=== PATIENT | female | born 1975 | race Caucasian/White ===

== ENCOUNTER → 2021-01-11 13:27 | Outpatient (CLI) | payer OTHER, SELFPAY ==
--- NOTE | ~2021-01-11 | CT_ITS ---
EXAMINATION: CT abdomen pelvis w con INDICATION: Abnormal findings on imaging of the liver TECHNIQUE: Computed tomographic images of the abdomen and pelvis were obtained after the administrati on of 100 cc of Omnipaque 350 intravenous contrast. The dose-length product (DLP) was 508.92 mGy-cm. Automated exposure control and iterative reconstruction technique were employed. COMPARISON: None available FINDINGS: Minimal dependent atelectasis is present in the lung bases. The heart size is normal. There is a 2 cm cyst of the liver at the gallbladder fossa. Multiple smaller low-attenuation lesions measu ring up to 7 mm are scattered throughout the liver. The spleen, pancreas, gallbladder, and adrenal gl ands are normal. The kidneys are unremarkable. No pathologically enlarged abdominal or pelvic lymph n odes are identified. There is no free intraperitoneal gas or evidence of bowel obstruction. An IUD is present in the uterus in expected position. IMPRESSION: 1. 2 cm cyst of the liver and multiple additional subcentimeter low-attenuation liver lesions. In the absence of known primary malignancy, hepatic dysfunction, or hepatic risk factors, these would be co nsidered benign requiring no further follow-up. Reviewed, dictated and finalized at location [facility]. [facility] IMPRESSION: 1. 2 cm cyst of the liver and multiple additional subcentimeter low-attenuation liver lesions. In the absence of known primary malignancy, hepatic dysfunction , or hepatic risk factors, these would be considered benign requiring no furthe r follow-up.
== END ==
PROVIDERS: PCP Family Medicine; Visit Provider Internal Medicine Gastroenterology
DX: R93.2 Abnormal findings on diagnostic imaging of liver and biliary tract (principal)
CPT/HCPCS: 74177; Q9967